=== PATIENT | male | born 1965 | race Two or more races ===

== ENCOUNTER 2025-02-13 10:00 | Day surgery (SDC) | payer BC, SELFPAY ==
[2025-02-12 14:59] VITALS: BMI 30.8
[2025-02-13] VITALS (10 sets, daily range): BP systolic 138–196; BP diastolic 75–107; PULSE 59–70; RESP 12–20; TEMP 36.7–36.8; O2SAT 96–99; BMI 31.1
[2025-02-13] MEDS: SODIUM CHLORIDE 0.9% 500 ML 500 ML 20 ML IV (10:27)
[2025-02-13] MEDS: DiphenhydrAMINE INJ 50 MG/ML VIAL 25 MG IV (11:59)
[2025-02-13] MEDS: fentaNYL CIT INJ 50 mCg/ML AMP 2ML (ASD USE ONLY) IV (12:02)
[2025-02-13] MEDS: MIDAZOLAM INJ 1 MG/ML VIAL 2 ML (ASD USE ONLY) 2 MG IV (12:02)
[2025-02-13] MEDS: hydrALAZINE INJ 20 MG/ML VIAL 10 MG IV (12:11)
== END 2025-02-13 15:02 | disposition home or self-care (01) ==
PROVIDERS: PCP Specialist; Referring Provider Specialist; Visit Provider Specialist
PROC: 0DBE8ZX Excision of Large Intestine, Via Natural or Artificial Opening Endoscopic, Diagnostic (ICD-10-PCS; CPT 45380; principal; 2025-02-13 10:45)
DX: Z12.11 Encounter for screening for malignant neoplasm of colon (principal); K64.9 Unspecified hemorrhoids
CPT/HCPCS: 45378; J0360; J1200; J2250; J3010; J7040